=== PATIENT | male | born 2005 | race Caucasian/White ===

== ENCOUNTER → 2023-03-16 14:56 | Outpatient (CLI) | payer BC, SELFPAY ==
--- NOTE | ~2023-03-16 | US_ITS ---
US venous doppler [facility] DATE: 03/16/2023 15:17 INDICATION: Left lower leg pain, worsening over the past 5 days. TECHNIQUE: Real-time and color flow imaging and Doppler analysis of the veins of the left lower extre mity COMPARISON: None FINDINGS: Left greater saphenous vein is patent. There is spontaneous and phasic flow and normal augm entation and color flow signal and normal compression of the deep veins of the left lower extremity. IMPRESSION: No evidence of deep venous thrombosis of left lower extremity Reviewed, dictated and finalized at [facility]. Reviewed, dictated and finalized at location [facility].
== END ==
PROVIDERS: PCP Pediatrics; Visit Provider Pediatrics
DX: M79.662 Pain in left lower leg (principal)
CPT/HCPCS: 93971

== ENCOUNTER → 2023-03-19 14:07 | Outpatient (CLI) | payer BC, SELFPAY ==
--- NOTE | ~2023-03-19 | XR_ITS ---
EXAMINATION: XR tibia fibula LT 2V INDICATION: Left lower limb pain TECHNIQUE: Two views of the left tibia and fibula are obtained on five radiographs. COMPARISON: None available FINDINGS: No fracture, dislocation, or subluxation. The bones, soft tissues, and joint spaces are nor mal. IMPRESSION: 1. No acute osseous abnormality. Reviewed, dictated and finalized at location F.
== END ==
PROVIDERS: PCP Pediatrics; Visit Provider Pediatrics
DX: M79.662 Pain in left lower leg (principal)
CPT/HCPCS: 73590